=== PATIENT | female | born 1965 | race Caucasian/White ===

== ENCOUNTER 2020-07-09 16:39 | Emergency (ER) | payer BC, SELFPAY ==
[2020-07-09 16:40] VITALS: BP 140/91; PULSE 77; RESP 18; TEMP 36.3; O2SAT 97; BMI 32.1
--- NOTE | 2020-07-09 17:05 | ED.VISSUMM ---
- ER Visit Summary Date of Service: 07/09/20 Chief Complaint: Eye swelling and hives with itching History of Present Illness: The patient is a 55 F who about 10 days ago had bilateral breast reduction surgery at the [facility]. Patient was doing well. She had a follow-up visit via telehealth a day or so ago. There was mild discoloration to her left breast with really no other significant symptoms other than mild chills so the started on antibiotic cefadroxil. Within 24 h she developed swelling to her eyes and hives. She is never had allergic reaction before. She denies any other medications. Urgent care then stop the antibiotic she was using Benadryl and they changed the antibiotic to doxycycline. She has not started that as of yet. Physical Examination: Middle-aged female no acute distress. Vital signs stable afebrile. H EENT exam mild periorbital swelling. Lips and tongue unremarkable. No trouble breathing or swallowing. No stridor. Neck nontender no lymphadenopathy. Lungs clear to auscultation bilaterally. No wheezing. Heart regular rhythm no murmur. Abdomen soft nontender normal bowel sounds no peritoneal signs. Her surgical sites look dry and clean. There is no cellulitis. There is mild bruising on the undersurface of both breasts. There is no cellulitis. No pus. No axillary lymphadenopathy. Moving all 4 extremities. Calves nontender without edema. Neurologically she is awake and alert. Test Results: None Emergency Department Course and Treatment: Clinically patient is allergic reaction most likely to the antibiotic. To be started on prednisone given her 1st dose here in emergency department and 40 mg a day for 4 more days. Follow-up with her plastic surgeon to clean clinic. Treatment Plan: Follow-up with her plastic surgeon. Disposition: Discharge Impression: Allergic reaction secondary to cefadroxil Status post recent breast reduction This note was generated with [employer] dictation software. It may contain incorrect words, spelling, and punctuation that were not noted in review of the chart prior to signing ED Disposition - Plan for ED Patient: Referrals: Nisa Dominique MD [Primary Care Provider] -
--- NOTE | 2020-07-09 17:08 | DCINST.ED_ITS ---
ED Disposition - Plan for ED Patient: Disposition: Home or Assisted Living Instructions: ED General Allergic Reactions Prescriptions: Prednisone [Deltasone] 40 mg PO DAILY 4 Days tab Prescription Printed Referrals: Nisa Dominique MD [Primary Care Provider] - As Needed Additional Instructions: Follow-up with your plastic surgeon. Prednisone daily 40 mg a day for 4 more days. This is for the allergic reaction . Cool compresses or ice to your eyes and forehead.
[2020-07-09] MEDS: predniSONE 20 MG Tablet 60 MG PO (17:21)
--- NOTE | 2020-07-09 17:28 | ED.RN ---
DISCHARGE INSTRUCTIONS GIVEN TO AND REVIEWED WITH PATIENT, PATIENT DENIES QUESTIONS OR CONCERNS AND VOICES UNDERSTANDING OF DISCHARGE INSTRUCTIONS. PT AMBULATES OUT OF ROOM WITHOUT DIFFICULTY.
== END 2020-07-09 17:29 | disposition home or self-care (01) ==
LOC: ED 17:13
PROVIDERS: Emergency Provider Emergency Medicine; PCP Internal Medicine
DX: L50.0 Allergic urticaria (principal)
CPT/HCPCS: 99283

== ENCOUNTER 2020-07-11 05:58 | Observation (INO) | payer BC, SELFPAY ==
[2020-07-11] VITALS (13 sets, daily range): BP systolic 117–152; BP diastolic 68–89; PULSE 71–86; RESP 16–18; TEMP 36.6–37.1; O2SAT 96–100; BMI 32.6; BMI 32.5
[2020-07-11] MEDS: DiphenhydrAMINE 50 MG/ML Syringe IV ×2 (06:15→07:14)
[2020-07-11] MEDS: MethylPREDNISolone 125 MG/2 ML Vial IV (06:15)
[2020-07-11] MEDS: Famotidine 200 MG/20 ML MDV 20 MG in 0.9% Normal Saline (Pres. free 8 ML 300 MG IV ×2 (06:27→20:32)
[2020-07-11] MEDS: 0.9% Normal Saline 1,000 ML 999 ML IV (06:28)
--- NOTE | 2020-07-11 06:46 | ED.VISSUMM ---
- ER Visit Summary Date of Service: 07/11/20 Chief Complaint: Allergic reaction History of Present Illness: The patient is a [address] Dominique. On June 29 patient had a bilateral breast reduction at [facility] by Dr. Braxton. States that 4 days ago she had a televisit with the nurse practitioner who thought that the left side look like it may be getting infected. She called in cefadroxil. Patient took her first dose of this 3 days ago and states that her eyes seem to be swollen. She took another dose the next morning and had hives and swelling around her mouth. She was seen in the emergency department and was placed on prednisone, Pepcid, and Benadryl. She is taking 40 mg of prednisone a day and took an extra 20 mg last night. Last dose of Benadryl was last night. She is taking 20 mg of Pepcid twice daily. She took a Zyrtec yesterday as well. Patient reports that she woke up this morning and she had redness around her mouth and to her forehead and hives on her back and legs. Patient denies any sores or open areas in her mouth, around her eyes, or in her vaginal area. She reports that the area of redness that they were concerned about on her breast is completely resolved. Patient denies any change in soap, shampoo, laundry detergent, or fabric softener. No new clothing, bedding, carpeting, or pets. No other new medications in the past month. Physical Examination: Vitals: Stable. Afebrile. General: Well-nourished and well-developed. Head: Normocephalic atraumatic. HEENT: No angioedema of the lips, tongue, or pharynx. Neck: Supple, no lymphadenopathy. No JVD. Nontender. Cardiovascular: Regular rate and rhythm. No murmurs. Respiratory: No respiratory distress. Clear to auscultation bilaterally. Abdominal: Soft, nontender, nondistended, normal bowel sounds. No guarding, rebound, or peritoneal signs. Back: Nontender. Extremities: Nontender, no edema. Skin: Erythema surrounding her mouth and to her forehead. She has urticarial lesions on her back.. Neurologic: Alert and oriented ?3. Cranial nerves II through XII are intact. Normal strength and sensation. Psych: Normal affect. Emergency Department Course and Treatment: Patient had an IV placed. She was given Benadryl, Pepcid, and Solu-Medrol IV. Her rash initially and started to improve. However, approximately an hour and 5 minutes after arrival the patient's rash is as bad if not worse than it was previously. She was given an additional 50 mg of Benadryl IV. She is not hypotensive or wheezing. I do not feel that epinephrine would be helpful at this time. Treatment Plan: At this time I do not have an explanation other than the cefadroxil. However, the half-life is 96 minutes and it should have been 95% out of her system in 6-1/2 hours. Her last dose was 48 hours ago. Patient has failed outpatient treatment of her allergic reaction and will be discussed with the hospitalist for admission for observation to make sure that this does not progress to a more serious reaction. Disposition: Admitted in stable condition. Impression: 1. Allergic reaction to cefadroxil. This note was generated with [employer] dictation software. It may contain incorrect words, spelling, and punctuation that were not noted in review of the chart prior to signing ED Disposition - Plan for ED Patient: Referrals: Nisa Dominique MD [Primary Care Provider] - 1-2 Days if not improving
--- NOTE | 2020-07-11 07:21 | NURSING ---
MED SURG OBS ASHELFAH ALLERGIC REACTION
[2020-07-11 07:48] LABS: Absolute Neutrophil Count 11.4 X10^3/uL (2.0-7.7); Basophil# 0.02 X10^3/uL; Basophil% 0.2 % (0-1); Eosinophil# 0.01 X10^3/uL; Eosinophils% 0.1 % (0-5); Hematocrit 32.8 % (37-47); Hemoglobin 10.7 g/dL (12.0-15.0); Lymphocyte % 8.4 % (19-41); Mean Corp Hgb Conc 32.6 g/dL (32-36); Mean Corpuscular Hgb 28.8 pg (27.0-32.0); Mean Corpuscular Volume 88.4 fL (81-99); Mean Platelet Vol. 8.7 fl (6.2-12.0); Monocyte# 0.42 X10^3/uL; Monocyte% 3.2 % (0-10); NRBC Flagged by Analyzer 0 % (0-5); Neutrophil # 11.44 X10^3/uL (2.7-7.7); Neutrophil % 87.7 % (47-70); Platelet Count 425 K/mm3 (150-450); RBC Distribution Width CV 13.2 % (11.6-14.6); RBC Distribution Width SD 42.2 fl (35.1-43.9); Red Blood Count 3.71 M/mm3 (4.2-5.4)
[2020-07-11 07:55] LABS: ALB/GLOB Ratio 0.9 RATIO (0.9-2.4); AST(SGOT) 10 U/L (15-37); Alanine Aminotransfer ALT/SGPT 19 U/L (13-56); Albumin, Serum 3.2 g/dL (3.2-5.0); Alkaline Phosphatase 87 U/L (45-117); Anion Gap 9 (5-15); BUN 16 mg/dL (7-18); BUN/Creat Ratio 19.9 RATIO (10-20); Calcium,Total 8.3 mg/dL (8.5-10.1); Chloride 109 mmol/L (98-107); EST Glomerular Filtration Rate 78 mL/min (>60); Est Glom Filt Rate - Afr Amer 94 mL/min (>60); Estimated Creatinine Clearance 75.45 ml/min; Globulin 3.4 g/dL (2.2-4.2); Glucose 118 mg/dL (74-106); Potassium 4.2 mmol/L (3.5-5.1); Protein, Total 6.6 g/dL (6.4-8.2); Sodium Level 142 mmol/L (136-145)
--- NOTE | 2020-07-11 08:55 | PCM.HP.STD ---
Problem List (1) Status post bilateral breast reduction s Status: Acute (2) Allergic reaction Status: Acute (3) Hypothyroidism Status: Chronic History of Present Illness Date of Admission: 07/11/20 Chief Complaint: Skin rash, itching. The patient is a 55 year old F with past medical history as mentioned above presented to the emergency room because of skin rash and itching. Patient had bilateral breast reduction surgery on June, at [facility] and she had a visual visit with her surgeon's PA this past Saturday, had minimal erythema underneath the left breast and she was started on cefadroxil. She took the first dose on Saturday night, woke up early Saturday morning having skin rash puffiness around her eyes and forehead. She did not pay attention to it and next morning, she took the second dose of cefadroxil. Again, she started to have skin rash involving forehead, around both eyes, both hands and she came to the emergency department. That skin rash were itchy, red and raised. She received Benadryl in the ED and she was discharged on prednisone. On Saturday night, she feels better but later, she started to have the swelling around both eyes, forehead puffiness and redness as well as skin rash on the hands and legs. She took prednisone on Saturday. Early this morning, she started to have the skin rash again towards on both eyes forehead, around her mouth, her back, trunk both legs. She had multiple skin rashes, erythematous, some of them look like target lesions and they are itchy. She received IV Solu-Medrol in the ED as well as IV Benadryl and Pepcid but she still have significant itching. She denied using any other medications apart from cefadroxil. In the emergency department, her vital signs were stable. Routine blood work was remarkable for mild leukocytosis, hemoglobin of 10.7 g/dL, otherwise normal. LFT was unremarkable. She is being admitted for allergic reaction secondary to cefadroxil with failure of outpatient treatment. Past Medical History Past Medical History (Chronic Problems): Chronic Problems Hypothyroidism (Chronic) Allergies cefadroxil Allergy (Verified 07/11/20 06:03) Hives Home Medications: Ambulatory Orders Medication Instructions Recorded Prednisone [Deltasone] 40 mg PO DAILY 4 Days tab 07/09/20 DiphenhydrAMINE [Benadryl] 50 mg PO BID PRN PRN 07/11/20 Famotidine [Pepcid] 20 mg PO BID 07/11/20 Levothyroxine Sodium [Levoxyl] 225 mcg PO DAILY 07/11/20 Surgical History: - - Bilateral breast reduction surgery, mastoidectomy. 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 Lives: Spouse/ Significant Other Smoking Status: Never smoker Alcohol: Occasional Drugs: None - *Family History Maternal History Items: No pertinent history Paternal History Items: No pertinent history Review of Systems Constitutional: Denies: Anorexia, Chills, Fever, Weakness Eyes: Denies: Blurred vision, Double vision, Drainage, Redness HEENT: Denies: Difficulty Hearing, Dysphasia, Ear Pain, Eye Pain, Nasal Congestion, Sore Throat Cardiovascular: Denies: Chest Pain, Claudication, Chest Tightness, Edema, Heaviness, Light Headedness, Palpitations, Syncope Respiratory: Denies: Cough, Pleuritic Pain, Shortness of Breath, Sputum production, Wheezing Gastrointestinal: Denies: Abdominal Pain, Constipation, Diarrhea, Nausea, Vomiting Genitourinary: Denies: Dysuria, Frequency, Hematuria Musculoskeletal: Denies: Arm Pain, Back Pain Skin: Reports: Pruritis, Rash. Denies: Jaundice Neurological: Denies: Balance problems, Double vision, Change in Speech, Confusion, Headaches, Incoordination, Numbness, Tingling Psychiatric: Denies: Anxiety, Depression Endocrine: Denies: Change in Body Habitus, Polydipsia, Polyuria VTE Information - Inpt Only VTE Present on Admission: No VTE Mechan Device Prophylaxis: None VTE Pharm Prophylaxis ordered?: No - Physical Exam Vitals/I&O's: Vital Signs Temp Pulse Resp BP Pulse Ox 98.2 F 78 17 140/89 H 97 07/11/20 07:31 07/11/20 07:31 07/11/20 07:31 07/11/20 07:31 07/11/20 07:31 Oxygen Delivery Method Room Air Weight: 207 lb 7.28 oz Body Mass Index (BMI) 32.5 Intake and Output for Last 24 Hours 07/09/20 07/10/20 07/11/20 23:59 23:59 23:59 Intake Total 1010 / 1010 Balance 1010 / 1010 General: Alert, Oriented x3, Cooperative, No apparent distress HEENT: Atraumatic, PERRLA, EOMI, Normocephalic Oral: Moist Mucosa, No Gingival or Mucosal Lesions/ Ulcerations Neck: Supple, No JVD, Negative Carotid Bruits, Trachea Midline, Thyroid Normal Size and Texture Lungs: Clear to auscultation, Normal air movement, No rhonchi, No wheeze, No rales Cardiovascular: Regular rate, Regular Rhythm, Normal S1, Normal S2, PMI Normal Abdomen: Bowel Sounds Present, Soft, Non Tender, Non-Distended, No Hepato-splenomegaly, Obese Extremities: No clubbing, No cyanosis, No edema Skin: Rash Present, - - Skin rash involving forehead, around the mouth, on both breasts, abdomen,, both arms and forearms as well as legs and some of them look like target lesions. Lymphatic: No Cervical, Supraclavicular, or Inguinal Adenopathy Neurological: Cranial nerves II-XII grossly intact, Motor Exam 5/5 strength throughout Psych/Mental Status: Normal Affect, Appropriate, Alert and oriented to time, place, person, mood and affect Laboratory Results 07/11/20 07:28: WBC 13.0 H, RBC 3.71 L, Hgb 10.7 L, Hct 32.8 L, MCV 88.4, MCH 28.8, MCHC 32.6, RDW Std Deviation 42.2, RDW Coeff of Marc 13.2, Plt Count 425, MPV 8.7, Immature Gran % (Auto) 0.400, Neut % (Auto) 87.7 H, Lymph % (Auto) 8.4 L, Hayes % (Auto) 3.2, Eos % (Auto) 0.1, Baso % (Auto) 0.2, Absolute Neuts (auto) 11.4 H, Absolute Lymphs (auto) 1.10, Nucleated RBC % 0 07/11/20 07:28: Sodium 142, Potassium 4.2, Chloride 109 H, Carbon Dioxide 24.0, Anion Gap 9, BUN 16, Creatinine 0.80, Estim Creat Clear Calc 75.45, Est GFR (MDRD) Af Amer 94, Est GFR (MDRD) Non-Af 78, BUN/Creatinine Ratio 19.9, Glucose 118 H, Calcium 8.3 L, Total Bilirubin 0.20, AST 10 L, ALT 19, Alkaline Phosphatase 87, Total Protein 6.6, Albumin 3.2, Globulin 3.4, Albumin/Globulin Ratio 0.9 Current Medications Acetaminophen (Acetaminophen 325 Mg Tablet) 650 mg PO Q6H PRN PRN PRN Reason: Pain Score 1-10/Temp > 100.7 F Sodium Chloride () 1,000 mls @ 100 mls/hr IV .Q10H [facility] Stop: 07/11/20 18:09 Famotidine 20 mg/ Sodium (Chloride) 10 mls @ 300 mls/hr IV Q12 [facility] Sodium Chloride () 250 mls @ 15 mls/hr IV .[id number] PRN PRN Reason: Saline Flush Sodium Chloride () 250 mls @ 15 mls/hr IV .[id number] PRN PRN Reason: Additional IVPB Infusion Levothyroxine Sodium (Levothyroxine 100 Mcg Tablet) 200 mcg PO DAILY@0600 [facility] Methylprednisolone (Methylprednisolone 40 Mg/Ml Vial) 40 mg IV Q8 [facility] Ondansetron HCl (Ondansetron 4 Mg/2 Ml Vial) 4 mg IV Q8H PRN PRN PRN Reason: NAUSEA/VOMITING Promethazine HCl (Promethazine 25 Mg/Ml Syringe) 12.5 mg IV Q6H PRN PRN PRN Reason: ITCHING Sodium Chloride (0.9% Saline Lock 10 Ml Syringe) 10 - 40 ml IV UD PRN PRN Reason: SALINE FLUSH Assessment/Plan All Active Problems Status post bilateral breast reduction s (Acute) Allergic reaction (Acute) This is a 55 years old female patient presented to the emergency room because of skin rash and itching after she was started on cefadroxil for minimal erythema and redness of the left breast after she underwent bilateral breast reduction surgery, developed allergic reaction to it with failure of outpatient treatment. #1 allergic reaction to cefadroxil/pelvic lesion/possible erythema multiform: With failure of outpatient treatment. Patient was on prednisone and Benadryl as outpatient, no improvement with recurrence of symptoms. Plan: Admit to MedSur floor for observation, telemetry monitoring, IV fluids, IV Solu-Medrol, IV Pepcid twice daily, IV Phenergan as needed as IV Benadryl was not effective. We may try topical steroids if no improvement. #2 status post bilateral breast reduction surgery: This was done at [facility] on 2020. There is no evidence of local erythema or swelling of both breasts, surgical scars are clean and dry. #3 hypothyroidism: Continue levothyroxine. #4 DVT prophylaxis: Low risk patient, ambulate. This note was generated with [employer] dictation software. It may contain incorrect words, spelling, and punctuation that were not noted in checking the note before signing. OBSV E&M: [id number] Initial observation care L2
[2020-07-11] MEDS: 0.9% Saline Lock 10 ML Syringe IV ×2 (09:56→21:07)
[2020-07-11] MEDS: 0.9% Normal Saline 1,000 ML 100 ML IV (09:57)
[2020-07-11] MEDS: proMETHazine 25 MG/ML Syringe 12.5 MG IV ×2 (11:20→16:53)
[2020-07-11] MEDS: Triamcinolone 0.5% Cream 1 APPLIC TOPICAL ×2 (12:14→20:36)
[2020-07-12] VITALS (13 sets, daily range): BP systolic 119–133; BP diastolic 50–70; PULSE 70–95; RESP 14–20; TEMP 36.6–37.2; O2SAT 95–97
[2020-07-12] MEDS: proMETHazine 25 MG/ML Syringe 12.5 MG IV ×3 (00:57→19:06)
[2020-07-12] MEDS: 0.9% Saline Lock 10 ML Syringe IV ×6 (01:01→19:06)
--- NOTE | 2020-07-12 03:31 | PCM.PN.BLA ---
Progress Note Patient continues itching. Per rounding MD's plan will start patient on topical corticosteroids. Loratadine p.o. ordered. STROKE Vital Signs/Narrative: Vital Signs Temp Pulse Resp BP Pulse Ox 07/12/20 01:59 72 07/12/20 01:03 98.1 F 71 18 119/63 96
[2020-07-12] MEDS: Loratadine 10 MG Tablet PO ×2 (03:51→11:46)
[2020-07-12] MEDS: Hydrocortisone 2.5% Crm 1 APPLIC TOPICAL ×2 (03:52→12:00)
[2020-07-12] MEDS: Levothyroxine 100 MCG Tablet 200 MCG PO (05:42)
--- NOTE | 2020-07-12 09:31 | CASEMGMT ---
Tertiary facilities in-network with patient's insurance: [facility], [facility], [facility], [facility], and
--- NOTE | 2020-07-12 10:33 | PCA ---
PATIENT CAME AND TALKED TO THIS POLICE AND FIRE DISPATCHER AND SAID THAT THEY ARE REQUESTING IF DOCTOR IS TRANSFERRING OUT THAT THEY WANT TO GO TO [facility] WHERE SHE HAD HER SURGERY AT. THEY ARE HOPING THAT SHE GET TO GO TODAY IF NOT THEY SAID THEY WILL DO ANYTHING THEY CAN TO HELP SPEED UP THE SITUATION TO GET UP THERE.
[2020-07-12 10:45] LABS: Thyroid Stim Hormone (TSH) 0.39 uIU/mL (0.358-3.74)
[2020-07-12] MEDS: Famotidine 200 MG/20 ML MDV 20 MG in 0.9% Normal Saline (Pres. free 8 ML 300 MG IV ×2 (11:46→21:25)
--- NOTE | 2020-07-12 12:28 | DS.PCM_ITS ---
Discharge Date and Diagnosis - Problem List Patient Problems: Active and Suspected Problems Status post bilateral breast reduction s (Acute) Allergic reaction (Acute) Date of Admission: 07/11/20 Date of Discharge: 07/12/20 - Primary Discharge Diagnosis Acute Problems: Active Problems Status post bilateral breast reduction s (Acute) Allergic reaction (Acute) - Secondary Discharge Diagnosis Chronic Problems: Chronic Problems Hypothyroidism (Chronic) Hospital Course and Treatment Summary of Care Provided: The patient is a 55 year old F [] Patient Problems: Active and Suspected Problems Status post bilateral breast reduction s (Acute) Allergic reaction (Acute) - Physical Exam Vitals/I&O's: Vital Signs Temp Pulse Resp BP Pulse Ox 98.9 F 70 16 133/70 H 96 07/12/20 12:17 07/12/20 12:17 07/12/20 12:17 07/12/20 12:17 07/12/20 12:17 Oxygen Delivery Method Room Air Weight: 207 lb 7.28 oz Body Mass Index (BMI) 32.5 Intake and Output for Last 24 Hours 07/10/20 07/11/20 07/12/20 23:59 23:59 23:59 Intake Total 2870 / 3470 960 / 960 Output Total 700 / 1300 600 / 600 Balance 2170 / 2170 360 / 360 Laboratory Results 07/11/20 07:28: TSH 0.39 Current Medications Acetaminophen (Acetaminophen 325 Mg Tablet) 650 mg PO Q6H PRN PRN PRN Reason: Pain Score 1-10/Temp > 100.7 F Hydrocortisone (Hydrocortisone 2.5% Crm) 1 applic TOPICAL TID PRN PRN; Protocol PRN Reason: ITCHING Last Admin: 07/12/20 12:00 Dose: 1 applicatio Documented by: Famotidine 20 mg/ Sodium (Chloride) 10 mls @ 300 mls/hr IV Q12 [facility] Last Infusion: 07/12/20 11:58 Dose: Infused Documented by: Sodium Chloride () 250 mls @ 15 mls/hr IV .[id number] PRN PRN Reason: Saline Flush Sodium Chloride () 250 mls @ 15 mls/hr IV .[id number] PRN PRN Reason: Additional IVPB Infusion Levothyroxine Sodium (Levothyroxine 100 Mcg Tablet) 200 mcg PO DAILY@0600 [facility] Last Admin: 07/12/20 05:42 Dose: 200 mcg Documented by: Loratadine (Loratadine 10 Mg Tablet) 10 mg PO DAILY [facility] Last Admin: 07/12/20 11:46 Dose: 10 mg Documented by: Methylprednisolone (Methylprednisolone 40 Mg/Ml Vial) 40 mg IV Q8 [facility] Last Admin: 07/12/20 05:41 Dose: 40 mg Documented by: Ondansetron HCl (Ondansetron 4 Mg/2 Ml Vial) 4 mg IV Q8H PRN PRN PRN Reason: NAUSEA/VOMITING Promethazine HCl (Promethazine 25 Mg/Ml Syringe) 12.5 mg IV Q6H PRN PRN PRN Reason: ITCHING Last Admin: 07/12/20 11:47 Dose: 12.5 mg Documented by: Sodium Chloride (0.9% Saline Lock 10 Ml Syringe) 10 - 40 ml IV UD PRN PRN Reason: SALINE FLUSH Last Admin: 07/12/20 11:46 Dose: 10 ml Documented by: Triamcinolone Acetonide (Triamcinolone 0.5% Cream) 1 applic TOPICAL BID [facility]; Protocol Last Admin: 07/12/20 09:24 Dose: Not Given Documented by: Home Medications: Medications to take at Discharge Prednisone [Deltasone] 40 mg PO DAILY 4 Days tab 07/09/20 DiphenhydrAMINE [Benadryl] 50 mg PO BID PRN PRN 07/11/20 Famotidine [Pepcid] 20 mg PO BID 07/11/20 Levothyroxine Sodium [Levoxyl] 225 mcg PO DAILY 07/11/20 Primary Care Physician: Nisa Dominique MD [Primary Care Provider] - 1-2 Days if not improving Medical Necessity - Tobacco Use Smoking Status: Never smoker OBSV E&M: [id number] Observation care discharge
[2020-07-12] MEDS: Acetaminophen 325 MG Tablet 650 MG PO (15:42)
--- NOTE | 2020-07-12 16:31 | PCM.PROGNOTE ---
Patient Problems: Active and Suspected Problems Status post bilateral breast reduction s (Acute) Allergic reaction (Acute) Subjective: Chief complaint: Follow-up after admission for allergic reaction/skin rash. Patient seen and examined. No acute events overnight. Today, she is still complaining of significant itching without improvement. Skin rash is getting worse all over her body including her face, both arms and legs, back, abdomen. She reported almost no improvement. Her vital signs are stable. - Physical Exam Vitals/I&O's: Vital Signs Temp Pulse Resp BP Pulse Ox 98.8 F 95 16 119/65 95 07/12/20 15:27 07/12/20 15:45 07/12/20 15:27 07/12/20 15:27 07/12/20 15:27 Oxygen Delivery Method Room Air Weight: 207 lb 7.28 oz Body Mass Index (BMI) 32.5 Intake and Output for Last 24 Hours 07/10/20 07/11/20 07/12/20 23:59 23:59 23:59 Intake Total 2870 / 3470 960 / 960 Output Total 700 / 1300 600 / 600 Balance 2170 / 2170 360 / 360 General: Alert, Oriented x3, Cooperative, No apparent distress HEENT: Atraumatic, PERRLA, EOMI, Normocephalic Oral: Moist Mucosa, No Gingival or Mucosal Lesions/ Ulcerations Neck: Supple, No JVD, Negative Carotid Bruits, Trachea Midline, Thyroid Normal Size and Texture Lungs: Clear to auscultation, Normal air movement, No rhonchi, No wheeze, No rales Cardiovascular: Regular rate, Regular Rhythm, Normal S1, Normal S2, No murmurs Abdomen: Bowel Sounds Present, Soft, Non Tender, Non-Distended, No Hepato-splenomegaly Extremities: No clubbing, No cyanosis, No edema Skin: Rash Present, - - Rash is on the face, upper and lower extremities, back, abdomen. It is raised erythematous plaques with minimal central clearing, some of them resembling target lesions, annular rash. Lymphatic: No Cervical, Supraclavicular, or Inguinal Adenopathy Neurological: Cranial nerves II-XII grossly intact, Motor Exam 5/5 strength throughout Psych/Mental Status: Normal Affect, Appropriate, Alert and oriented to time, place, person, mood and affect Laboratory Results 07/11/20 07:28: TSH 0.39 Current Medications Acetaminophen (Acetaminophen 325 Mg Tablet) 650 mg PO Q6H PRN PRN PRN Reason: Pain Score 1-10/Temp > 100.7 F Last Admin: 07/12/20 15:42 Dose: 650 mg Documented by: Hydrocortisone (Hydrocortisone 2.5% Crm) 1 applic TOPICAL TID PRN PRN; Protocol PRN Reason: ITCHING Last Admin: 07/12/20 12:00 Dose: 1 applicatio Documented by: Famotidine 20 mg/ Sodium (Chloride) 10 mls @ 300 mls/hr IV Q12 [facility] Last Infusion: 07/12/20 11:58 Dose: Infused Documented by: Sodium Chloride () 250 mls @ 15 mls/hr IV .[id number] PRN PRN Reason: Saline Flush Sodium Chloride () 250 mls @ 15 mls/hr IV .[id number] PRN PRN Reason: Additional IVPB Infusion Levothyroxine Sodium (Levothyroxine 100 Mcg Tablet) 200 mcg PO DAILY@0600 [facility] Last Admin: 07/12/20 05:42 Dose: 200 mcg Documented by: Loratadine (Loratadine 10 Mg Tablet) 10 mg PO DAILY [facility] Last Admin: 07/12/20 11:46 Dose: 10 mg Documented by: Methylprednisolone (Methylprednisolone 40 Mg/Ml Vial) 40 mg IV Q8 [facility] Last Admin: 07/12/20 13:55 Dose: 40 mg Documented by: Ondansetron HCl (Ondansetron 4 Mg/2 Ml Vial) 4 mg IV Q8H PRN PRN PRN Reason: NAUSEA/VOMITING Promethazine HCl (Promethazine 25 Mg/Ml Syringe) 12.5 mg IV Q6H PRN PRN PRN Reason: ITCHING Last Admin: 07/12/20 11:47 Dose: 12.5 mg Documented by: Sodium Chloride (0.9% Saline Lock 10 Ml Syringe) 10 - 40 ml IV UD PRN PRN Reason: SALINE FLUSH Last Admin: 07/12/20 13:56 Dose: 10 ml Documented by: Triamcinolone Acetonide (Triamcinolone 0.5% Cream) 1 applic TOPICAL BID [facility]; Protocol Last Admin: 07/12/20 09:24 Dose: Not Given Documented by: Medical Necessity - Tobacco Use Smoking Status: Never smoker Assessment/Plan All Active Problems Status post bilateral breast reduction s (Acute) Allergic reaction (Acute) This is a 55 years old female patient presented to the emergency room because of skin rash and itching after she was started on cefadroxil for minimal erythema and redness of the left breast after she underwent bilateral breast reduction surgery, developed allergic reaction to it with failure of outpatient treatment. #1 allergic reaction/skin rash/simplification/possible erythema multiform: With failure of outpatient treatment. Patient has been on IV steroids as well as topical steroids, IV antihistamines without any improvement. Still have significant itching and rash is getting more diffuse. Her vital signs are stable. At this time, I am not sure if her skin is due to allergic reaction to cefadroxil. She took last dose of cefadroxil on Saturday which is almost 72 hours away. No evidence of other systemic diseases that may cause skin rash. 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 LFT was unremarkable. Patient will need to be evaluated by immunology/dermatology. I made a call to [facility] transfer line diet spoke with the triage physician accepted the patient on transfer for further evaluation and treatment. We are awaiting bed availability at [facility]. #2 status post bilateral breast reduction surgery: This was done at [facility] on 2020. There is no evidence of local erythema or swelling of both breasts, surgical scars are clean and dry. #3 hypothyroidism: Continue levothyroxine. TSH was normal. #4 DVT prophylaxis: Low risk patient, ambulate. This note was generated with Com[employer] dictation software. It may contain incorrect words, spelling, and punctuation that were not noted in checking the note before signing. Inpatient E&M: 78865 Subs Hosp L2
[2020-07-12] MEDS: Triamcinolone 0.5% Cream 1 APPLIC TOPICAL (21:25)
[2020-07-13] VITALS (10 sets, daily range): BP systolic 114–125; BP diastolic 58–79; PULSE 74–92; RESP 16–18; TEMP 36.6–37.2; O2SAT 93–96
[2020-07-13] MEDS: Levothyroxine 100 MCG Tablet 200 MCG PO (05:39)
[2020-07-13] MEDS: proMETHazine 25 MG/ML Syringe 12.5 MG IV ×3 (05:43→21:23)
[2020-07-13] MEDS: 0.9% Saline Lock 10 ML Syringe IV ×5 (05:44→21:26)
[2020-07-13] MEDS: Loratadine 10 MG Tablet PO (07:58)
[2020-07-13] MEDS: Famotidine 200 MG/20 ML MDV 20 MG in 0.9% Normal Saline (Pres. free 8 ML 300 MG IV ×2 (09:31→21:25)
--- NOTE | 2020-07-13 09:42 | PHA.DC.MR ---
Pharmacy Service has performed discharge medication reconciliation for this patient. The patient's discharge medication list was reviewed for discrepancies and discrepancies were resolved. Home Medications Prednisone [Deltasone] 40 mg PO DAILY 4 Days tab 07/09/20 DiphenhydrAMINE [Benadryl] 50 mg PO BID PRN PRN 07/11/20 Famotidine [Pepcid] 20 mg PO BID 07/11/20 Levothyroxine Sodium [Levoxyl] 225 mcg PO DAILY 07/11/20
--- NOTE | 2020-07-13 12:04 | PCM.PROGNOTE ---
Patient Problems: Active and Suspected Problems Status post bilateral breast reduction s (Acute) Allergic reaction (Acute) Subjective: Chief complaint: Follow-up after admission for allergic reaction/skin rash. Patient seen and examined. No acute events overnight. Again today, patient still complaining of itching, no medication were effective. Skin rash is getting back and forth, but has been worsening all over. No other complaints. Her vital signs are stable. - Physical Exam Vitals/I&O's: Vital Signs Temp Pulse Resp BP Pulse Ox 97.8 F 74 18 115/79 93 07/13/20 07:51 07/13/20 07:51 07/13/20 07:51 07/13/20 07:51 07/13/20 07:51 Oxygen Delivery Method Room Air Weight: 207 lb 7.28 oz Body Mass Index (BMI) 32.5 Intake and Output for Last 24 Hours 07/11/20 07/12/20 07/13/20 23:59 23:59 23:59 Intake Total 2870 / 3470 1320 / 1320 10 Output Total 700 / 1300 1300 / 1300 Balance 2170 / 2170 20 10 10 General: Alert, Oriented x3, Cooperative, No apparent distress HEENT: Atraumatic, PERRLA, EOMI, Normocephalic Oral: Moist Mucosa, No Gingival or Mucosal Lesions/ Ulcerations Neck: Supple, No JVD, Negative Carotid Bruits, Trachea Midline, Thyroid Normal Size and Texture Lungs: Clear to auscultation, Normal air movement, No rhonchi, No wheeze, No rales Cardiovascular: Regular rate, Regular Rhythm, Normal S1, Normal S2, No murmurs, PMI Normal Abdomen: Bowel Sounds Present, Soft, Non Tender, Non-Distended, No Hepato-splenomegaly Extremities: No clubbing, No cyanosis, No edema Skin: No breakdown, Rash Present - Multiple areas of erythematous skin plaques with raised edges, clearing of the center, looks like annular skin rash, no open wounds or drainage. It is on the face, both upper and lower extremities, back and abdomen. Lymphatic: No Cervical, Supraclavicular, or Inguinal Adenopathy Neurological: Cranial nerves II-XII grossly intact, Motor Exam 5/5 strength throughout Psych/Mental Status: Normal Affect, Appropriate, Alert and oriented to time, place, person, mood and affect Current Medications Acetaminophen (Acetaminophen 325 Mg Tablet) 650 mg PO Q6H PRN PRN PRN Reason: Pain Score 1-10/Temp > 100.7 F Last Admin: 07/12/20 15:42 Dose: 650 mg Documented by: Hydrocortisone (Hydrocortisone 2.5% Crm) 1 applic TOPICAL TID PRN PRN; Protocol PRN Reason: ITCHING Last Admin: 07/12/20 12:00 Dose: 1 applicatio Documented by: Famotidine 20 mg/ Sodium (Chloride) 10 mls @ 300 mls/hr IV Q12 [facility] Last Infusion: 07/13/20 09:59 Dose: Infused Documented by: Sodium Chloride () 250 mls @ 15 mls/hr IV .[id number] PRN PRN Reason: Saline Flush Sodium Chloride () 250 mls @ 15 mls/hr IV .[id number] PRN PRN Reason: Additional IVPB Infusion Levothyroxine Sodium (Levothyroxine 100 Mcg Tablet) 200 mcg PO DAILY@0600 [facility] Last Admin: 07/13/20 05:39 Dose: 200 mcg Documented by: Loratadine (Loratadine 10 Mg Tablet) 10 mg PO DAILY [facility] Last Admin: 07/13/20 07:58 Dose: 10 mg Documented by: Methylprednisolone (Methylprednisolone 40 Mg/Ml Vial) 40 mg IV Q8 [facility] Last Admin: 07/13/20 05:39 Dose: 40 mg Documented by: Ondansetron HCl (Ondansetron 4 Mg/2 Ml Vial) 4 mg IV Q8H PRN PRN PRN Reason: NAUSEA/VOMITING Promethazine HCl (Promethazine 25 Mg/Ml Syringe) 12.5 mg IV Q6H PRN PRN PRN Reason: ITCHING Last Admin: 07/13/20 05:43 Dose: 12.5 mg Documented by: Sodium Chloride (0.9% Saline Lock 10 Ml Syringe) 10 - 40 ml IV UD PRN PRN Reason: SALINE FLUSH Last Admin: 07/13/20 09:31 Dose: 10 ml Documented by: Triamcinolone Acetonide (Triamcinolone 0.5% Cream) 1 applic TOPICAL BID [facility]; Protocol Last Admin: 07/13/20 09:32 Dose: Not Given Documented by: Medical Necessity - Tobacco Use Smoking Status: Never smoker Assessment/Plan All Active Problems Status post bilateral breast reduction s (Acute) Allergic reaction (Acute) This is a 55 years old female patient presented to the emergency room because of skin rash and itching after she was started on cefadroxil for minimal erythema and redness of the left breast after she underwent bilateral breast reduction surgery, developed allergic reaction to it with failure of outpatient treatment. #1 allergic reaction/skin rash/possible erythema multiform: So far, no definitive diagnosis. Patient has been on IV steroids as well as topical steroids and IV antihistamines without improvement. Skin rash has been recurrent, improving and comes back, intense itching. Rash is getting more diffuse. Her vital signs are stable. Again, I am not sure if this skin rash is due to allergic reaction to cefadroxil. Patient took last dose of cefadroxil 4 days ago. No evidence of systemic disease that may cause rash. LFT was normal. She does have Ghulam's thyroiditis and her TSH was normal. I made a call to [facility] transfer line diet spoke with the triage physician accepted the patient on transfer for further evaluation and treatment. We are still awaiting bed availability at [facility]. #2 status post bilateral breast reduction surgery: This was done at [facility] on 2020. There is no evidence of local erythema or swelling of both breasts, surgical scars are clean and dry. #3 hypothyroidism: Continue levothyroxine. TSH was normal. #4 DVT prophylaxis: Low risk patient, ambulate. This note was generated with Se[employer] dictation software. It may contain incorrect words, spelling, and punctuation that were not noted in checking the note before signing. OBSV E&M: [id number] Subsequent observation care L2
[2020-07-13] MEDS: Acetaminophen 325 MG Tablet 650 MG PO (14:26)
[2020-07-13] MEDS: hydrOXYzine PAM 25 MG Capsule 50 MG PO (15:43)
[2020-07-13 21:27] LABS: Lyme Ab Screen Interpretation REF LAB
[2020-07-14] VITALS (12 sets, daily range): BP systolic 115–135; BP diastolic 69–84; PULSE 70–95; RESP 16–18; TEMP 36.8–37.1; O2SAT 90–96
[2020-07-14] MEDS: Levothyroxine 100 MCG Tablet 200 MCG PO (06:52)
[2020-07-14] MEDS: 0.9% Saline Lock 10 ML Syringe IV (06:53)
--- NOTE | 2020-07-14 08:31 | NURSING ---
aware per Krys at [facility] transfer center no bed available for patient at [facility] at this time and unable to estimate when bed will become available.
--- NOTE | 2020-07-14 10:37 | NURSING ---
[facility] patient advocate requested to talk w/ pt
--- NOTE | 2020-07-14 11:20 | NURSING ---
[facility] transfer center called checking on bed status: Talked with Penny, aware no bed available at this time.
[2020-07-14] MEDS: Loratadine 10 MG Tablet PO (11:47)
[2020-07-14] MEDS: Famotidine 200 MG/20 ML MDV 20 MG in 0.9% Normal Saline (Pres. free 8 ML 300 MG IV ×2 (11:48→21:50)
--- NOTE | 2020-07-14 12:26 | PCM.PROGNOTE ---
Patient Problems: Active and Suspected Problems Status post bilateral breast reduction s (Acute) Allergic reaction (Acute) Subjective: Chief complaint: Follow-up after admission for allergic reaction/skin rash. Patient seen and examined. No acute events overnight. Still having the skin rash which improved and comes back and his pain become more diffuse. Still having significant itching without improvement. No other complaints, her vital signs are stable. - Physical Exam Vitals/I&O's: Vital Signs Temp Pulse Resp BP Pulse Ox 98.2 F 72 18 135/84 H 96 07/14/20 09:53 07/14/20 09:53 07/14/20 09:53 07/14/20 09:53 07/14/20 09:53 Oxygen Delivery Method Room Air Weight: 207 lb 7.28 oz Body Mass Index (BMI) 32.5 Intake and Output for Last 24 Hours 07/12/20 07/13/20 07/14/20 23:59 23:59 23:59 Intake Total 1320 / 1320 1260 / 1260 Output Total 1300 / 1300 Balance 1260 / 1260 General: Alert, Oriented x3, Cooperative, No apparent distress HEENT: Atraumatic, PERRLA, EOMI, Normocephalic Oral: Moist Mucosa, No Gingival or Mucosal Lesions/ Ulcerations Neck: Supple, No JVD, Negative Carotid Bruits, Trachea Midline, Thyroid Normal Size and Texture Lungs: Clear to auscultation, Normal air movement, No rhonchi, No wheeze, No rales Cardiovascular: Regular rate, Regular Rhythm, Normal S1, Normal S2, PMI Normal Abdomen: Bowel Sounds Present, Soft, Non Tender, Non-Distended, No Hepato-splenomegaly Extremities: No clubbing, No cyanosis, No edema Skin: No rashes, No breakdown Lymphatic: No Cervical, Supraclavicular, or Inguinal Adenopathy Neurological: Cranial nerves II-XII grossly intact, Neuro grossly intact Psych/Mental Status: Normal Affect, Appropriate, Alert and oriented to time, place, person, mood and affect Laboratory Results 07/11/20 07:28: Lyme Total Antibody Pending, Lyme Disease Interpret Pending Current Medications Acetaminophen (Acetaminophen 325 Mg Tablet) 650 mg PO Q6H PRN PRN PRN Reason: Pain Score 1-10/Temp > 100.7 F Last Admin: 07/13/20 14:26 Dose: 650 mg Documented by: Hydroxyzine Pamoate (Hydroxyzine Marilyn 25 Mg Capsule) 50 mg PO 4X/DAY PRN PRN PRN Reason: itching Last Admin: 07/13/20 15:43 Dose: 50 mg Documented by: Famotidine 20 mg/ Sodium (Chloride) 10 mls @ 300 mls/hr IV Q12 [facility] Last Admin: 07/14/20 11:48 Dose: 300 mls/hr Documented by: Sodium Chloride () 250 mls @ 15 mls/hr IV .[id number] PRN PRN Reason: Saline Flush Sodium Chloride () 250 mls @ 15 mls/hr IV .[id number] PRN PRN Reason: Additional IVPB Infusion Levothyroxine Sodium (Levothyroxine 100 Mcg Tablet) 200 mcg PO DAILY@0600 [facility] Last Admin: 07/14/20 06:52 Dose: 200 mcg Documented by: Loratadine (Loratadine 10 Mg Tablet) 10 mg PO DAILY [facility] Last Admin: 07/14/20 11:47 Dose: 10 mg Documented by: Methylprednisolone (Methylprednisolone 40 Mg/Ml Vial) 40 mg IV Q12 [facility] Last Admin: 07/14/20 11:48 Dose: 40 mg Documented by: Ondansetron HCl (Ondansetron 4 Mg/2 Ml Vial) 4 mg IV Q8H PRN PRN PRN Reason: NAUSEA/VOMITING Promethazine HCl (Promethazine 25 Mg/Ml Syringe) 12.5 mg IV Q6H PRN PRN PRN Reason: ITCHING Last Admin: 07/13/20 21:23 Dose: 12.5 mg Documented by: Sodium Chloride (0.9% Saline Lock 10 Ml Syringe) 10 - 40 ml IV UD PRN PRN Reason: SALINE FLUSH Last Admin: 07/14/20 06:53 Dose: 10 ml Documented by: Triamcinolone Acetonide (Triamcinolone 0.5% Cream) 1 applic TOPICAL BID [facility]; Protocol Last Admin: 07/14/20 11:49 Dose: Not Given Documented by: Medical Necessity - Tobacco Use Smoking Status: Never smoker Assessment/Plan All Active Problems Status post bilateral breast reduction s (Acute) Allergic reaction (Acute) This is a 55 years old female patient presented to the emergency room because of skin rash and itching after she was started on cefadroxil for minimal erythema and redness of the left breast after she underwent bilateral breast reduction surgery, developed allergic reaction to it with failure of outpatient treatment. #1 allergic reaction/skin rash/possible erythema multiform: So far, no definitive diagnosis. She is on systemic and topical steroids as well as antihistamines. No improvement. Skin that has been improving and coming back and has been getting worse every time it comes back. Patient denied any recent history of tick bites. Lyme disease serology and skin scrapings for tinea corporis sent and they are pending. No evidence of systemic disease that may cause rash. LFT was normal. She does have Ghulam's thyroiditis and her TSH was normal. We are still awaiting bed availability at [facility]. #2 status post bilateral breast reduction surgery: This was done at [facility] on 2020. There is no evidence of local erythema or swelling of both breasts, surgical scars are clean and dry. #3 hypothyroidism: Continue levothyroxine. TSH was normal. #4 DVT prophylaxis: Low risk patient, ambulate. This note was generated with AccessData dictation software. It may contain incorrect words, spelling, and punctuation that were not noted in checking the note before signing. Inpatient E&M: 72363 Subs Hosp L2
--- NOTE | 2020-07-14 12:30 | NURSING ---
Late entry: Pt wanted to speak to nurse states her iv is painful even more nor due to her ongoing swelling and hives on skin. Location of iv site is noted to be on a developing welt. Iv removed per comfort. Pt later up to the statistical secretary desk stating that she wants to know what is going on with the transfer. She was notified earlier by the this nurse that the charge had called and as of this morning no bed was available. Pt was demanding that the statistical secretary follow up with this. This nurse intervene and Pt states she is worried that her throat may close up. She was very anxious about this her spouse was here. Hospitalist was notified and suggestion for a virtual consult with an director digital strategy/ box stacker at the [facility]. This nurse was able to set up a [address] virtual appointment [address] Dr.Sheila Barahona at the [facility] virtual visit. Pt is in agreement with this appointment set up and pt is instructed to complete her online questions on [employer]. List of medications given during hospital stay was also given for this consult. Also pt is notified if physician is requiring any further records to notify nurse and they will be faxed to her office. Pt and spouse seems more at ease at this time. Pt is encouraged to share her pics with this doctor so she can address her symptoms.
--- NOTE | 2020-07-14 13:02 | NURSING ---
talked with Xiang at [facility] transfer center. aware no bed at this time.
[2020-07-14] MEDS: proMETHazine 25 MG/ML Syringe 12.5 MG IV ×2 (14:06→20:23)
--- NOTE | 2020-07-14 16:34 | NURSING ---
Late entry: Pt was unable to have tele consult with Data Collection Interviewer/ pot puller. She was questioning her options as to what other hospitals will accept her. She is [facility] pt and spouse he placed the request for transfer they respond they do not have the specialist on staff to admit this pt. She is understandable of this. Nurse made a phone call to [facility] and was also notified there is no available bed at this time. Pt was updated on all follow ups. She and her notified this nurse that they have an appointment with an pot puller/ box worker for 1330 hrs on 07/15/20 as a back up they are hoping they will be discharged by tomorrow for this appointment if the transfer has not been available.
--- NOTE | 2020-07-14 17:50 | NURSING ---
talked w/ dylon at [facility] transfer center. aware no bed available at this time.
[2020-07-15 02:59] VITALS: PULSE 56
[2020-07-15 03:31] VITALS: BP 117/57; PULSE 70; RESP 18; TEMP 36.8; O2SAT 94
[2020-07-15 07:04] VITALS: PULSE 61
--- NOTE | 2020-07-15 07:59 | DCINST_ITS ---
- Discharge Diagnoses Current Active Problems: Current Active and Chronic Problems Status post bilateral breast reduction s (Acute) Allergic reaction (Acute) Hypothyroidism (Chronic) You will use the following diet at home:: Regular Your food should be the consistency of: Regular Discharge Activity: Return to Normal Activity Weight Bearing Status: Full weight bearing Call your doctor if you observe: Fever of 101 or Higher, Shortness of breath, Dizziness, Fainting spells, Chest pain, Prolonged hiccoughing, Uncontrolled pain Additional Instructions: Follow-up with the nutritional yeast supervisor today as scheduled. Allergies/Adverse Reactions: Allergies cefadroxil Allergy (Verified 07/11/20 06:03) Hives Medications to take at Discharge Levothyroxine Sodium [Levoxyl] 225 mcg PO DAILY 07/11/20 DiphenhydrAMINE [Benadryl] 25 mg PO Q8H PRN PRN #14 cap 07/15/20 Famotidine [Pepcid] 20 mg PO BID #10 tab 07/15/20 Prednisone [Deltasone] 40 mg PO DAILY 5 Days #10 tab 07/15/20 The following prescriptions were given: DiphenhydrAMINE [Benadryl] 25 mg PO Q8H PRN PRN #14 cap PRN Reason: Itching Transmission Status: Pending to [id number] Prednisone [Deltasone] 40 mg PO DAILY 5 Days #10 tab Transmission Status: Pending to [id number] Famotidine [Pepcid] 20 mg PO BID #10 tab Transmission Status: Pending to [id number] Primary Care Physician: Nisa Dominique MD [Primary Care Provider] - 1-2 Days if not improving Please follow up with your Primary Care Physician in: 2 weeks. Test Results: Test results from this visit will be discussed in further detail at your follow- up appointment, if applicable.
[2020-07-15 08:10] VITALS: BP 118/69; PULSE 59; RESP 18; TEMP 36.9; O2SAT 98
--- NOTE | 2020-07-15 09:49 | PCM.DC.SUM ---
Discharge Date and Diagnosis - Problem List Patient Problems: Active and Suspected Problems Status post bilateral breast reduction s (Acute) Allergic reaction (Acute) Date of Admission: 07/11/20 Date of Discharge: 07/15/20 - Primary Discharge Diagnosis Acute Problems: Active Problems #1 acute diffuse annular skin rash, unclear etiology. #2 suspected allergic reaction to cefadroxil. #3 status post recent bilateral breast reduction surgery. - Secondary Discharge Diagnosis Chronic Problems: Chronic Problems Hypothyroidism (Chronic) Hospital Course and Treatment Operations: None Procedures: None Summary of Care Provided: Patient seen and examined on the day of discharge and appeared to be stable to be discharged home and follow-up with immunology today as outpatient. Skin rash significantly improved as well as itching. Her vital signs were stable. The patient is a 55 year old F presented to the emergency room because of skin rash and itching that was started after she started on cefadroxil for minimal erythema and redness of the left breast after she underwent bilateral breast reduction surgery on June 29, 2020. After she took cefadroxil, she developed mild skin rash around her eyes and face. Secondly, patient took a second dose of cefadroxil and later, the rash got worse and started to involve her hands and legs and was itchy. She was seen in the ED 2 days before the admission and she was given IV Solu-Medrol, IV Pepcid and Benadryl and she was discharged on prednisone. Patient came back 1 day later because of worsening skin rash and itching although she stopped taking cefadroxil. The rash was on large patches of erythematous rash with raised edges, annular lesions with some target lesions as well. There was no scales on the edges of the patches. Patient denied history of tick bite, recent travel or contact to unusual objects or eating unusual food. She was admitted to the floor, started on IV steroids, IV antihistamines. In the first 3 days, she had no improvement whatsoever. Skin rash kept improving and returned back and becoming more diffuse with intense itching. She was treated with different IV antihistamines including IV Phenergan, Benadryl and hydroxyzine without improvement. She was started on topical steroids with triamcinolone cream. Also, there was no improvement after old dose treatments. Decision was made to transfer the patient to the hospital where there is inpatient dermatology or immunology services. I made a call to [facility] transfer line and I spoke with the admitting physician who accepted the patient in transfer for further evaluation and treatment. Patient was waiting bed availability at [facility] for 4 days. Skin scrapings for SRINIVASAN was done and was negative for fungus. Although there was no history of tick bite, skin rash was diffuse and was itching, Lyme disease serology sent and it was pending at the time of discharge. I tried to transfer the patient to a different facility so I called [facility] and [facility] and both they have no inpatient dermatology or immunology services. On the day of discharge, patient reported significant improved over her skin rash, patient has been significantly improved as well and this happened overnight and all of a sudden. On examination, the skin rash is really improved. Patient arranged an appointment today which is a day of discharge with immunology as outpatient at [facility]. Patient discharged home in a stable medical condition, discharged on prednisone 40 mg p.o. daily for 5 days, discharged on Pepcid twice daily, Benadryl as needed, plan to go to be evaluated by immunology at [facility] as outpatient, recommended follow-up with PCP in 2 weeks. Patient Problems: Active and Suspected Problems Status post bilateral breast reduction s (Acute) Allergic reaction (Acute) - Physical Exam Vitals/I&O's: Vital Signs Temp Pulse Resp BP Pulse Ox 98.4 F 59 L 18 118/69 98 07/15/20 08:10 07/15/20 08:10 07/15/20 08:10 07/15/20 08:10 07/15/20 08:10 Oxygen Delivery Method Room Air Weight: 207 lb 7.28 oz Body Mass Index (BMI) 32.5 Intake and Output for Last 24 Hours 07/13/20 07/14/20 07/15/20 23:59 23:59 23:59 Intake Total 1260 / 1260 1950 / 2300 650 / 650 Output Total 700 / 700 Balance 1260 / 1260 1250 / 1600 650 / 650 General: Alert, Oriented x3, Cooperative, No apparent distress HEENT: Atraumatic, PERRLA, EOMI, Normocephalic Oral: Moist Mucosa, No Gingival or Mucosal Lesions/ Ulcerations Neck: Supple, No JVD, Negative Carotid Bruits, Trachea Midline, Thyroid Normal Size and Texture Lungs: Clear to auscultation, Normal air movement, No rhonchi, No wheeze, No rales Cardiovascular: Regular rate, Regular Rhythm, Normal S1, Normal S2, PMI Normal Abdomen: Bowel Sounds Present, Soft, Non Tender, Non-Distended, No Hepato-splenomegaly Extremities: No clubbing, No cyanosis, No edema Skin: No breakdown, Rash Present - But significantly improved. Lymphatic: No Cervical, Supraclavicular, or Inguinal Adenopathy Neurological: Cranial nerves II-XII grossly intact, Neuro grossly intact Psych/Mental Status: Normal Affect, Appropriate Microbiology Past 72 Hours 07/13/20 Unknown Other - Skin Scrappings SRINIVASAN Preparation - Final Current Medications Acetaminophen (Acetaminophen 325 Mg Tablet) 650 mg PO Q6H PRN PRN PRN Reason: Pain Score 1-10/Temp > 100.7 F Last Admin: 07/13/20 14:26 Dose: 650 mg Documented by: Hydroxyzine Pamoate (Hydroxyzine Marilyn 25 Mg Capsule) 50 mg PO 4X/DAY PRN PRN PRN Reason: itching Last Admin: 07/13/20 15:43 Dose: 50 mg Documented by: Famotidine 20 mg/ Sodium (Chloride) 10 mls @ 300 mls/hr IV Q12 [facility] Last Infusion: 07/14/20 21:52 Dose: Infused Documented by: Sodium Chloride () 250 mls @ 15 mls/hr IV .[id number] PRN PRN Reason: Saline Flush Sodium Chloride () 250 mls @ 15 mls/hr IV .[id number] PRN PRN Reason: Additional IVPB Infusion Levothyroxine Sodium (Levothyroxine 100 Mcg Tablet) 200 mcg PO DAILY@0600 [facility] Last Admin: 07/15/20 06:03 Dose: Not Given Documented by: Loratadine (Loratadine 10 Mg Tablet) 10 mg PO DAILY [facility] Last Admin: 07/14/20 11:47 Dose: 10 mg Documented by: Methylprednisolone (Methylprednisolone 40 Mg/Ml Vial) 40 mg IV Q12 [facility] Last Admin: 07/14/20 21:50 Dose: 40 mg Documented by: Ondansetron HCl (Ondansetron 4 Mg/2 Ml Vial) 4 mg IV Q8H PRN PRN PRN Reason: NAUSEA/VOMITING Promethazine HCl (Promethazine 25 Mg/Ml Syringe) 12.5 mg IV Q6H PRN PRN PRN Reason: ITCHING Last Admin: 07/14/20 20:23 Dose: 12.5 mg Documented by: Sodium Chloride (0.9% Saline Lock 10 Ml Syringe) 10 - 40 ml IV UD PRN PRN Reason: SALINE FLUSH Last Admin: 07/14/20 06:53 Dose: 10 ml Documented by: Triamcinolone Acetonide (Triamcinolone 0.5% Cream) 1 applic TOPICAL BID MAYA; Protocol Last Admin: 07/14/20 22:48 Dose: Not Given Documented by: Discharge Activity: Return to Normal Activity Weight Bearing Status: Full weight bearing Call your doctor if you observe: Fever of 101 or Higher, Shortness of breath, Dizziness, Fainting spells, Chest pain, Prolonged hiccoughing, Uncontrolled pain Home Medications: Medications to take at Discharge Levothyroxine Sodium [Levoxyl] 225 mcg PO DAILY 07/11/20 DiphenhydrAMINE [Benadryl] 25 mg PO Q8H PRN PRN #14 cap 07/15/20 Famotidine [Pepcid] 20 mg PO BID #10 tab 07/15/20 Prednisone [Deltasone] 40 mg PO DAILY 5 Days #10 tab 07/15/20 Following Prescriptions Were Given to Patient: DiphenhydrAMINE [Benadryl] 25 mg PO Q8H PRN PRN #14 cap PRN Reason: Itching Transmission Status: Received by [facility]/pharmacy #[id number] Prednisone [Deltasone] 40 mg PO DAILY 5 Days #10 tab Transmission Status: Received by [facility]/pharmacy #[id number] Famotidine [Pepcid] 20 mg PO BID #10 tab Transmission Status: Received by [facility]/pharmacy #[id number] Primary Care Physician: Nisa Dominique MD [Primary Care Provider] - 1-2 Days if not improving Please follow up with your Primary Care Physician in: 2 weeks. Disposition: Home Minutes spent on discharge:: 33 Patient Condition:: Stable Medical Necessity - Tobacco Use Smoking Status: Never smoker Meaningful Use Info Meaningful Use Diagnoses (Choose all that apply): None applicable Inpatient E&M: 92125 Disch Hosp
[2020-07-15] MEDS: Loratadine 10 MG Tablet PO (10:09)
[2020-07-15] MEDS: 0.9% Saline Lock 10 ML Syringe IV (10:09)
[2020-07-15] MEDS: Famotidine 200 MG/20 ML MDV 20 MG in 0.9% Normal Saline (Pres. free 8 ML 300 MG IV (10:09)
[2020-07-15 10:48] VITALS: BP 112/66; PULSE 79; RESP 18; TEMP 36.7; O2SAT 95
[2020-07-15 16:43] LABS: Lyme Scn Total Ab w/Rflx <0.91 ISR (0.00-0.90)
== END 2020-07-15 12:00 | disposition home or self-care (01) ==
LOC: ED 06:52 → MS3 07:56
PROVIDERS: Admitting Provider Hospitalist; Emergency Provider Emergency Medicine; PCP Internal Medicine; Visit Provider Hospitalist
DX: L27.0 Generalized skin eruption due to drugs and medicaments taken internally (principal); T36.1X5A Adverse effect of cephalosporins and other beta-lactam antibiotics, initial encounter; Z98.890 Other specified postprocedural states; Z79.899 Other long term (current) drug therapy; L29.9 Pruritus, unspecified; E06.3 Autoimmune thyroiditis; Z75.1 Person awaiting admission to adequate facility elsewhere
CPT/HCPCS: 80053; 84443; 85025; 86618; 87210; 96361; 96365; 96366; 96375; 96376; 99218; 99251; 99284; J7030; A4216; G0378; G0463; J3490

== ENCOUNTER 2020-08-05 14:25 | Outpatient (RCR) | payer BC, SELFPAY ==
[2020-07-11 08:08] VITALS: BMI 32.5
== END 2020-10-18 23:59 ==
LOC: IMMUN 14:25
PROVIDERS: PCP Internal Medicine; Visit Provider Family Medicine
DX: Z23 Encounter for immunization (principal)
CPT/HCPCS: 0001A; 0002A; 91300